=== PATIENT | female | born 1990 | race Caucasian/White ===

== ENCOUNTER 2017-11-28 04:51 | Emergency (ER) | payer MEDICAID, OTHER ==
[2017-11-28 04:58] VITALS: BP 125/78
[2017-11-28] MEDS ORDERED: Amoxicillin/Clavulanate K 875-125 MG Tab PO ONE (05:23)
[2017-11-28] MEDS ORDERED: Ibuprofen 600 MG Tab PO ONE (05:23)
--- NOTE | 2017-11-28 05:27 | EDM.PDOC ---
ED HPI GENERAL MEDICAL PROBLEM - General Chief Complaint: ENT Problem Stated Complaint: EAR ACHE [id number] Time Seen by Provider: 11/28/17 05:05 Source of Information: Reports: Patient History Limitations: Reports: No Limitations - History of Present Illness INITIAL COMMENTS - FREE TEXT/NARRATIVE: C/O right ear pain starting Wednesday worse tonight, now sore throat also. unsure if fever, congestion with cough. 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 Right Ear Pain Score (Numeric/FACES): 9 Throat Pain Score (Numeric/FACES): 4 - Related Data Allergies Allergy/AdvReac Type Severity Reaction Status Date / Time paper tape Allergy Other Uncoded 11/28/17 05:01 Home Meds: Home Meds . 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 - Infectious Disease History Infectious Disease History: Reports: Chicken Pox - Past Surgical History Female Surgical History: Reports: Section Social & Family History - Family History Family Medical History: Noncontributory - Tobacco Use Smoking Status *Q: Current Every Day Smoker Years of Tobacco use: 10 Packs/Tins Daily: 0.5 - Caffeine Use Caffeine Use: Reports: Coffee - Recreational Drug Use Recreational Drug Use: No - Living Situation & Occupation Living situation: Reports: Single, with Significant Other Occupation: Unemployed ED ROS ENT - Review of Systems Review Of Systems: ROS reveals no pertinent complaints other than HPI. ED EXAM, ENT - Physical Exam Exam: See Below Exam Limited By: No Limitations General Appearance: Alert, Mild Distress Eye Exam: Bilateral Eye: EOMI, PERRL Ears: Normal External Exam, TM Erythema, TM Fluid Nose: Normal Inspection Mouth/Throat: Tonsillar Swelling. No: Tonsillar Exudates Head: Atraumatic, Normocephalic Neck: Lymphadenopathy (R). No: Lymphadenopathy (L) Respiratory/Chest: No Respiratory Distress, Lungs Clear, Normal Breath Sounds Cardiovascular: Normal Peripheral Pulses, Regular Rate, Rhythm GI/Abdominal: Normal Bowel Sounds, Soft, Non-Tender Extremities: Normal Inspection Neurological: Alert, Oriented Psychiatric: Normal Affect Skin: Warm, Dry, Intact, Normal Color Course - Vital Signs Last Recorded V/S: Last Vital Signs Temp 99.3 F 11/28/17 04:55 Pulse 73 11/28/17 04:55 Resp 18 11/28/17 04:55 BP 125/78 11/28/17 04:55 Pulse Ox 99 11/28/17 04:55 - Orders/Labs/Meds Orders: Active Orders 24 hr Category Date Time Status CULTURE STREP A CONFIRMATION [RM] Stat Lab 11/28/17 04:55 Results STREP SCRN A RAPID W CULT CONF [RM] Stat Lab 11/28/17 04:55 Results Departure - Departure Time of Disposition: 05:25 Disposition: Home, Self-Care 01 Condition: Good Clinical Impression: Otitis media Qualifiers: Otitis media type: suppurative Chronicity: acute Laterality: right Recurrence: not specified as recurrent Spontaneous tympanic membrane rupture: without spontaneous rupture Qualified Code(s): H66.001 - Acute suppurative otitis media without spontaneous rupture of ear drum, right ear - Discharge Information *PRESCRIPTION DRUG MONITORING PROGRAM REVIEWED*: Not Applicable Instructions: Otitis Media, Adult, [id number] Additional Instructions: Augmentin 875mg one twice daily for 10 days alternate tylenol 650mg and ibuprofen 600mg every 4 hours as needed for discomfort. Follow up as needed - My Orders Last 24 Hours: My Active Orders 11/28/17 04:55 CULTURE STREP A CONFIRMATION [RM] Stat STREP SCRN A RAPID W CULT CONF [RM] Stat - Assessment/Plan Last 24 Hours: My Active Orders 11/28/17 04:55 CULTURE STREP A CONFIRMATION [RM] Stat STREP SCRN A RAPID W CULT CONF [RM] Stat
== END 2017-11-28 05:30 | disposition home or self-care (01) ==
LOC: DL.ED 04:51
DX: H66.001 Acute suppurative otitis media without spontaneous rupture of ear drum, right ear (principal); F17.210 Nicotine dependence, cigarettes, uncomplicated
CPT/HCPCS: 87081; 87430; 99283; A9270

== ENCOUNTER 2020-08-06 16:32 | Emergency (ER) | payer SELFPAY ==
[2020-08-06 16:55] VITALS: BP 121/82; PULSE 83
[2020-08-06] MEDS ORDERED: Ketorolac 30 MG/ML SDV IVPUSH ONE (17:01)
[2020-08-06] MEDS ORDERED: Sodium Chloride 0.9% 1,000 ML IV ONE (17:01)
[2020-08-06] MEDS ORDERED: Ondansetron 4 MG/2 ML SDV IVPUSH ONE (17:01)
[2020-08-06] MEDS ORDERED: diphenhydrAMINE 50 MG/ML SDV IVPUSH ONE (17:02)
--- NOTE | 2020-08-06 17:26 | EDM.PDOC ---
<Berta Glover - Last Filed: 08/06/20 19:36> ED HPI GENERAL MEDICAL PROBLEM - General Chief Complaint: Headache Stated Complaint: SEVER MIGRAINE Time Seen by Provider: 08/06/20 16:55 - Related Data Allergies Allergy/AdvReac Type Severity Reaction Status Date / Time Egg Derived Allergy Other Verified 08/06/20 16:51 paper tape Allergy Other Uncoded 11/28/17 05:01 Home Meds: Home Meds . [No Known Home Meds] 11/28/17 [History] Departure - Departure Time of Disposition: 19:37 Disposition: Home, Self-Care 01 Condition: Good Clinical Impression: Headache Qualifiers: Headache type: other headache syndrome Qualified Code(s): G44.89 - Other headache syndrome - Discharge Information *PRESCRIPTION DRUG MONITORING PROGRAM REVIEWED*: No *COPY OF PRESCRIPTION DRUG MONITORING REPORT IN PATIENT MICHAELA: No Instructions: Migraine Headache, [id number] Forms: ED Department Discharge Additional Instructions: rest increase fluids tylenol 650mg every 4 hours as needed for discomfort follow up as needed <Juana Mejiae - Last Filed: 08/07/20 07:29> ED HPI GENERAL MEDICAL PROBLEM - General Source of Information: Reports: Patient, Significant Other History Limitations: Reports: No Limitations - History of Present Illness INITIAL COMMENTS - FREE TEXT/NARRATIVE: Patient presents to the ED via personal vehicle with fiance for complaints of headache. The patient reports her headache began abruptly approximately 30 minutes ago, post-coitus. She does attest to a history of migraines, but she has not had one in about one year. She is not currently on control therapy for migraines and did not take any medications for this headache today. The patient states the pain begins behind her eyes, bilaterally, and radiates into her occiput. She denies recent illness, fever, shaking chills, vision changes, photophobia, phonophobia, palpitations, vomiting, or diarrhea. She states the headache is not aggravated or alleviated with position changes. She denies recent changes to medications. She is a former smoker and denies alcohol or recreational drug use. 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 - Infectious Disease History Infectious Disease History: Reports: Chicken Pox - Past Surgical History Female Surgical History: Reports: Section Social & Family History - Family History Family Medical History: No Pertinent Family History - Tobacco Use Tobacco Use Status *Q: Former Tobacco User Used Tobacco, but Quit: Yes Month/Year Tobacco Last Used: 05/2019 - Caffeine Use Caffeine Use: Reports: None - Recreational Drug Use Recreational Drug Use: No - Living Situation & Occupation Living situation: Reports: Single, with Significant Other Occupation: Unemployed ED ROS GENERAL - Review of Systems Review Of Systems: Comprehensive ROS is negative, except as noted in HPI. - Physical Exam Exam: See Below Exam Limited By: No Limitations General Appearance: Alert, Anxious, Mild Distress (Pain) Eye Exam: Bilateral Eye: EOMI, Normal Inspection, PERRL (4mm) Ears: Normal External Exam, Normal Canal, Hearing Grossly Normal, Normal TMs Nose: Normal Inspection, Normal Mucosa, No Blood Throat/Mouth: Normal Inspection, Normal Lips, Normal Teeth, Normal Gums, Normal Oropharynx, Normal Voice, No Airway Compromise Head Exam: Atraumatic, Normocephalic Neck: Normal Inspection, Supple, Non-Tender, Full Range of Motion. No: Tender Lateral, Tender Midline Respiratory/Chest: No Respiratory Distress, Lungs Clear, Normal Breath Sounds, No Accessory Muscle Use, Chest Non-Tender Cardiovascular: Normal Peripheral Pulses, Regular Rate, Rhythm, No Edema, No Gallop, No JVD, No Murmur, No Rub GI/Abdominal: Normal Bowel Sounds, Soft, Non-Tender, No Distention, No Mass, Pelvis Stable Neuro Exam (Abbreviated): Alert, Oriented, CN II-XII Intact, Normal Cognition, Normal Gait, Normal Reflexes, No Motor/Sensory Deficits. No: Slow to Respond, Memory Loss Remote Events, Memory Loss Recent Events Back Exam: Normal Inspection, Full Range of Motion. No: CVA Tenderness (L), CVA Tenderness (R) Extremities: Normal Inspection, Normal Range of Motion, Non-Tender, No Pedal Edema, Normal Capillary Refill Psychiatric: Anxious, Tearful Skin Exam: Dry, Intact, Other (Flushed to face) Course - Vital Signs Last Recorded V/S: Last Vital Signs Temp 98.2 F 08/06/20 16:52 Pulse 83 08/06/20 16:52 Resp 20 08/06/20 16:52 BP 121/82 08/06/20 16:52 Pulse Ox 96 08/06/20 16:52 - Orders/Labs/Meds Labs: Laboratory Tests 08/06/20 08/06/20 Range/Units 17:53 17:53 WBC 9.0 (5.0-10.0) 10^3/uL RBC 4.22 (4.2-5.4) 10^6/uL Hgb 12.6 (12.0-16.0) g/dL Hct 39.8 (37.0-47.0) % MCV 94.3 (80-100) fL MCH 29.9 (27.0-34.0) pg MCHC 31.7 L (33.0-35.0) g/dL Plt Count 314 (150-450) 10^3/uL Neut % (Auto) 76.1 H (42.2-75.2) % Lymph % (Auto) 15.0 L (20.5-50.1) % Mcdonough % (Auto) 8.4 H (2-8) % Eos % (Auto) 0.4 L (1.0-3.0) % Baso % (Auto) 0.1 (0.0-1.0) % ESR 6 (0-20) mm/hr Sodium 142 (136-145) mmol/L Potassium 3.9 (3.5-5.1) mmol/L Chloride 104 (98-107) mmol/L Carbon Dioxide 31 (21-32) mmol/L Anion Gap 10.9 (7-13) mEq/L BUN 16 (7-18) mg/dL Creatinine 0.90 (0.55-1.02) mg/dL Est Cr Clr Drug Dosing 89.69 mL/min Estimated GFR (MDRD) > 60 BUN/Creatinine Ratio 17.8 (No establ ref range) Glucose 103 H (70-99) mg/dL Calcium 8.1 L (8.5-10.1) mg/dL Total Bilirubin 0.3 (0.2-1.0) mg/dL AST 20 (15-37) U/L ALT 35 (14-59) U/L Alkaline Phosphatase 60 (46-116) U/L C-Reactive Protein < 0.2 (0.0-0.9) mg/dL Total Protein 7.1 (6.4-8.2) g/dL Albumin 3.5 (3.4-5.0) g/dL Globulin 3.6 Albumin/Globulin Ratio 1.0 HCG, Qual Negative Meds: Medications Discontinued Medications Generic Name Dose Route Start Last Admin Trade Name Rossana PRN Reason Stop Dose Admin Diphenhydramine HCl 50 mg 08/06/20 17:02 08/06/20 17:19 Diphenhydramine 50 Mg/Ml Sdv IVPUSH 08/06/20 17:03 50 mg ONETIME ONE Administration Sodium Chloride 1,000 mls @ 999 mls/hr 08/06/20 17:01 08/06/20 17:19 Normal Saline IV 08/06/20 18:01 999 mls/hr .BOLUS ONE Administration Iopamidol 100 ml 08/06/20 18:47 08/06/20 19:02 Iopamidol 612 Mg/Ml 100 Ml Bottle IVPUSH 08/06/20 18:48 50 ml ONETIME ONE Administration Ketorolac Tromethamine 30 mg 08/06/20 17:01 08/06/20 17:19 Ketorolac 30 Mg/Ml Sdv IVPUSH 08/06/20 17:02 30 mg ONETIME ONE Administration Ondansetron HCl 4 mg 08/06/20 17:01 08/06/20 17:19 Ondansetron 4 Mg/2 Ml Sdv IVPUSH 08/06/20 17:02 4 mg ONETIME ONE Administration - Radiology Interpretation Free Text/Narrative:: [facility] Final Radiology Report Call: [phone] assistance Online chat: [email or web address] Name: ZACH CALERO Age: 29Years F Date: 08/06/2020 SSN: -- : 1990 Study: CT HEAD W CONT Requesting Physician: Juana Mejia Images: 107 Addl Studies: Provided Clinical History: Sudden headache, post-coitus Contrast: With Contrast Medium: [id number] Contrast Amount: 50 mL Contrast Method: Intravenous (IV) Page 1 of 2 PROCEDURE INFORMATION: Exam: CT Head With Contrast Exam date and time: 08/06/2020 6:51 PM Age: 29 years old Clinical indication: Pain; Headache; Additional info: Sudden headache, post- coitus TECHNIQUE: Imaging protocol: Computed tomography of the head with intravenous contrast. Radiation optimization: All CT scans at this facility use at least one of these dose optimization techniques: automated exposure control; mA and/or kV adjustment per patient size (includes targeted exams where dose is matched to clinical indication); or iterative reconstruction. Contrast material: [id number]; Contrast volume: 50 ml; Contrast route: INTRAVENOUS (IV); COMPARISON: No relevant prior studies available. FINDINGS: Brain: Unremarkable white matter. No mass effect. No abnormal enhancing lesions. Cerebral ventricles: Unremarkable. No ventriculomegaly. Bones/joints: Unremarkable. No acute fracture. Paranasal sinuses: Visualized sinuses are unremarkable. No fluid levels. Mastoid air cells: Visualized mastoid air cells are well aerated. Soft tissues: Unremarkable. IMPRESSION: No acute intracranial abnormality. Thank you for allowing us to participate in the care of your patient. Dictated and Authenticated by: Nawaf Sanchez MD 08/06/2020 7:25 PM Central Time ([place] & [place]) Sepsis Event Note (ED) - Evaluation Sepsis Screening Result: No Definite Risk
[2020-08-06 18:19] LABS: ANION GAP 10.9 mEq/L (7-13); CHLORIDE,CL 104 mmol/L (98-107); SODIUM,NA 142 mmol/L (136-145)
[2020-08-06] MEDS ORDERED: Iopamidol 612 MG/ML 100 ML Bottle IVPUSH ONE (18:47)
--- NOTE | 2020-08-06 19:25 | CT ---
PROCEDURE INFORMATION: Exam: CT Head With Contrast Exam date and time: 08/06/2020 6:51 PM Age: 29 years old Clinical indication: Pain; Headache; Additional info: Sudden headache, post-coitus TECHNIQUE: Imaging protocol: Computed tomography of the head with intravenous contrast. Radiation optimization: All CT scans at this facility use at least one of these dose optimization techniques: automated exposure control; mA and/or kV adjustment per patient size (includes targeted exams where dose is matched to clinical indication); or iterative reconstruction. Contrast material: [id number]; Contrast volume: 50 ml; Contrast route: INTRAVENOUS (IV); COMPARISON: No relevant prior studies available. FINDINGS: Brain: Unremarkable white matter. No mass effect. No abnormal enhancing lesions. Cerebral ventricles: Unremarkable. No ventriculomegaly. Bones/joints: Unremarkable. No acute fracture. Paranasal sinuses: Visualized sinuses are unremarkable. No fluid levels. Mastoid air cells: Visualized mastoid air cells are well aerated. Soft tissues: Unremarkable. IMPRESSION: No acute intracranial abnormality.
== END 2020-08-06 19:42 | disposition home or self-care (01) ==
LOC: DL.ED 16:32
DX: G44.89 Other headache syndrome (principal); Z87.891 Personal history of nicotine dependence; Z91.012 Allergy to eggs; Z91.018 Allergy to other foods
CPT/HCPCS: 36415; 70460; 80053; 84703; 85025; 85651; 86140; 96374; 96375; 99283; 99284-25; J1200; J1885; J2405; J7030; Q9967

== ENCOUNTER 2020-11-28 04:15 | Emergency (ER) | payer SELFPAY ==
[2020-11-28] MEDS ORDERED: Acetaminophen/HYDROcodone 325-5 MG Tab PO ONE (04:36)
--- NOTE | 2020-11-28 04:43 | EDM.PDOC ---
ED HPI GENERAL MEDICAL PROBLEM - General Stated Complaint: PAIN ON RIGHT SIDE OF FACE Time Seen by Provider: 11/28/20 04:29 Source of Information: Reports: Patient History Limitations: Reports: No Limitations - History of Present Illness INITIAL COMMENTS - FREE TEXT/NARRATIVE: This 30 yo female patient reports to the ED due to right sided facial pain. The patient reports she was seen in the [facility] yesterday due to right ear pain. The patient was diagnosed with a right sided ear infection, given an injection and started on Augmentin. The patient has taken the antibiotic as prescribed and has been taking Ibuprofen (800 mg) 4 times in the past 24 hours, but continues to have increased pain. Duration: Day(s):, Constant, Getting Worse Location: Reports: Face (Right ear pain that radiates throughout the right side of her face) Quality: Reports: Ache, Stabbing Severity: Severe Improves with: Reports: None Worsens with: Reports: None Context: Reports: Other - Related Data Allergies Allergy/AdvReac Type Severity Reaction Status Date / Time Egg Derived Allergy Other Verified 08/06/20 16:51 paper tape Allergy Other Uncoded 11/28/17 05:01 Home Meds: Home Meds . 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 ED EXAM, ENT - Physical Exam Exam: See Below Exam Limited By: No Limitations General Appearance: Alert, WD/WN, Moderate Distress Eye Exam: Bilateral Eye: EOMI, Normal Inspection, PERRL Ears: Canal Swelling (right), TM Bulging (right), TM Erythema (right), TM Fluid (Right) Nose: Normal Inspection, Normal Mucousa, No Blood Mouth/Throat: Normal Inspection, Normal Gums, Normal Lips, Normal Oropharynx, Normal Teeth Head: Atraumatic, Normocephalic Neck: Normal Inspection, Supple, Non-Tender, Full Range of Motion Respiratory/Chest: No Respiratory Distress, Lungs Clear, Normal Breath Sounds, No Accessory Muscle Use, Chest Non-Tender Cardiovascular: Normal Peripheral Pulses, Regular Rate, Rhythm, No Edema, No Gallop, No JVD, No Murmur, No Rub GI/Abdominal: Normal Bowel Sounds, Soft, Non-Tender, No Organomegaly, No Distention, No Abnormal Bruit, No Mass (Female) Exam: Deferred Rectal (Female) Exam: Deferred Back: Normal Inspection, Full Range of Motion Extremities: Normal Inspection, Normal Range of Motion, Non-Tender, No Pedal Edema, Normal Capillary Refill Neurological: Alert, Oriented, CN II-XII Intact, Normal Cognition, Normal Gait, Normal Reflexes, No Motor/Sensory Deficits Psychiatric: Normal Affect, Normal Mood Skin: Warm, Dry, Intact, Normal Color, No Rash Lymphatic: No Adenopathy Course - Orders/Labs/Meds Meds: Medications Discontinued Medications Generic Name Dose Route Start Last Admin Trade Name Rossana PRN Reason Stop Dose Admin Hydrocodone Bitart/Acetaminophen 1 tab 11/28/20 04:36 Acetaminophen/Hydrocodone 325-5 Mg Tab PO 11/28/20 04:37 ONETIME ONE Departure - Departure Time of Disposition: 04:43 Disposition: Home, Self-Care 01 Condition: Fair Clinical Impression: Right otitis media with effusion - Discharge Information *PRESCRIPTION DRUG MONITORING PROGRAM REVIEWED*: Yes *COPY OF PRESCRIPTION DRUG MONITORING REPORT IN PATIENT MICHAELA: Not Applicable Instructions: Otitis Media, Adult, [id number] Care Plan Goals: The patient was advised of the examination results during the visit. The patient was given an oral dose of Dale while in the ED. The patient was discharged with a script for Dale (5/325) #4 to take 1 by mouth every 6 hours as needed for pain. The patient was advised to continue to take the medications as prescribed. If the patient has any additional symptoms or concerns, the patient should either return to the emergency department or visit her primary care facility.
== END 2020-11-28 04:51 | disposition home or self-care (01) ==
LOC: DL.ED 04:15
DX: H65.91 Unspecified nonsuppurative otitis media, right ear (principal); Z91.012 Allergy to eggs; Z91.048 Other nonmedicinal substance allergy status
CPT/HCPCS: 99282; 99283; A9270-GY

== ENCOUNTER 2024-07-27 16:05 | Emergency (ER) | payer OTHER ==
[2024-07-27 16:32] VITALS: BP 143/83; PULSE 104
== END 2024-07-27 17:03 | disposition home or self-care (01) ==
LOC: DL.ED 16:05
DX: R51.9 Headache, unspecified (principal); T42.6X5A Adverse effect of other antiepileptic and sedative-hypnotic drugs, initial encounter; Z91.012 Allergy to eggs; Z91.048 Other nonmedicinal substance allergy status; Z79.899 Other long term (current) drug therapy
CPT/HCPCS: 99282; 99283

== ENCOUNTER 2024-12-26 17:57 | Emergency (ER) | payer OTHER ==
[2024-12-26] MEDS: Amoxicillin/Clavulanate K 875-125 MG Tab PO ONE (18:26)
[2024-12-26] MEDS: Ketorolac 30 MG/ML SDV IM ONE (18:26)
[2024-12-26 18:50] VITALS: BP 143/94; PULSE 95
== END 2024-12-26 18:31 | disposition home or self-care (01) ==
LOC: DL.ED 17:57
DX: K04.7 Periapical abscess without sinus (principal); I10 Essential (primary) hypertension; Z91.012 Allergy to eggs; Z79.899 Other long term (current) drug therapy
CPT/HCPCS: 82947; 96372; 99283; A9270; J1885

== ENCOUNTER 2024-12-30 01:09 | Emergency (ER) | payer OTHER ==
[2024-12-30] MEDS: Hydrocortisone/Neomycin/Polymyxin B Otic Susp 10 ML Bottle EARBOTH ONE (05:54)
[2024-12-30 06:10] VITALS: BP 153/95; PULSE 73
== END 2024-12-30 06:00 | disposition home or self-care (01) ==
LOC: DL.ED 01:09
DX: H60.93 Unspecified otitis externa, bilateral (principal); I10 Essential (primary) hypertension; F17.210 Nicotine dependence, cigarettes, uncomplicated; Z91.012 Allergy to eggs; Z91.048 Other nonmedicinal substance allergy status; Z88.8 Allergy status to other drugs, medicaments and biological substances
CPT/HCPCS: 70486; 99282; 99283; A9270